=== PATIENT | female | born 1995 | race Caucasian/White ===

== ENCOUNTER 2019-12-21 10:24 | Emergency (ER) | payer MEDICAID, OTHER ==
[~2019-12-21] VITALS: Ht 160 cm; Wt 109.8 kg
[2019-12-21 12:20] VITALS: BP 117/83
[2019-12-21] MEDS ORDERED: LIDOCAINE 1% HCL (LOCAL ANESTH.) INJ 20ML MDV ONE (13:04)
== END 2019-12-21 13:40 | disposition home or self-care (01) ==
LOC: ER 10:24
DX: L02.31 Cutaneous abscess of buttock (principal)
CPT/HCPCS: 10060; 99283; J2001